=== PATIENT | female | born 1975 | race African-American/Black ===

== ENCOUNTER 2017-09-11 20:08 | Emergency (ER) | payer MEDICAID, OTHER ==
[~2017-09-11] VITALS: Ht 172.7 cm; Wt 138.0 kg
[2017-09-12] MEDS ORDERED: KETOROLAC 60MG/2ML VIAL IM ONE (03:30)
[2017-09-12 06:55] VITALS: BP 142/82
== END 2017-09-12 06:58 | disposition home or self-care (01) ==
LOC: ER 20:08
DX: S86.812A Strain of other muscle(s) and tendon(s) at lower leg level, left leg, initial encounter (principal); M17.12 Unilateral primary osteoarthritis, left knee; E11.9 Type 2 diabetes mellitus without complications; M19.90 Unspecified osteoarthritis, unspecified site; I10 Essential (primary) hypertension; Z90.49 Acquired absence of other specified parts of digestive tract; X58.XXXA Exposure to other specified factors, initial encounter; Y93.B9 Activity, other involving muscle strengthening exercises; Y92.89 Other specified places as the place of occurrence of the external cause
CPT/HCPCS: 73560; 96372; 99284; J1885; L1830; Z7610

== ENCOUNTER 2018-01-08 22:24 | Emergency (ER) | payer MEDICAID ==
[~2018-01-08] VITALS: Ht 172.7 cm; Wt 134.0 kg
[2018-01-09 05:06] LABS: BASOPHILS % 0.6 % (0.0-2.0); EOSINOPHILS % 1.8 % (0.0-5.0); HEMATOCRIT. 33.1 % (36.0-48.0); HEMOGLOBIN. 10.2 g/dL (12.0-16.0); LYMPHOCYTES % 38.9 % (20.0-50.0); MEAN CORPUSCULAR HEMOGLOBIN 22.3 pg (28.0-32.0); MEAN CORPUSCULAR VOLUME 72.1 fL (81.0-99.0); NEUTROPHILS % 53.7 % (40.0-76.0); RED BLOOD CELL COUNT 4.59 mill/uL (4.2-5.4); RED CELL DISTRIBUTION WIDTH 17.3 % (11.6-14.6)
[2018-01-09 05:11] LABS: CHLORIDE 104 mEq/L (98-107)
[2018-01-09 05:54] LABS: CLARITY URINE CLOUDY (CLEAR); COLOR URINE YELLOW (YELLOW); KETONES URINE TRACE (NEGATIVE); LEUKOCYTE ESTERASE URINE TRACE (NEGATIVE); NITRITE URINE NEGATIVE (NEGATIVE); OCCULT BLOOD URINE NEGATIVE (NEGATIVE); PH URINE 6.5 (4.5-8.0); PROTEIN URINE NEGATIVE (NEGATIVE); SPECIFIC GRAVITY URINE 1.024 (1.005-1.030); UROBILINOGEN URINE 0.2 E.U./dL (0.2-1.0)
[2018-01-09 08:18] VITALS: BP 131/82
== END 2018-01-09 08:21 | disposition home or self-care (01) ==
LOC: ER 01-09 02:21
DX: R20.2 Paresthesia of skin (principal); A59.00 Urogenital trichomoniasis, unspecified; E11.9 Type 2 diabetes mellitus without complications; I10 Essential (primary) hypertension
CPT/HCPCS: 36415; 80053; 81003; 81025; 82962; 84484; 85025; 93005; 99285

== ENCOUNTER 2018-05-15 08:44 | Emergency (ER) | payer MEDICAID ==
[~2018-05-15] VITALS: Ht 167.6 cm; Wt 132.0 kg
[2018-05-15] MEDS ORDERED: DEXAMETHASONE 10 MG/ML VIAL IM ONE (09:45)
[2018-05-15] MEDS ORDERED: KETOROLAC 60MG/2ML VIAL IM ONE (09:45)
[2018-05-15 09:59] VITALS: BP 149/86
[2018-05-15 10:11] LABS: CLARITY URINE CLOUDY (CLEAR); KETONES URINE TRACE (NEGATIVE); LEUKOCYTE ESTERASE URINE 1+ (NEGATIVE); NITRITE URINE NEGATIVE (NEGATIVE); OCCULT BLOOD URINE 3+ (NEGATIVE); PH URINE 5.5 (4.5-8.0); PROTEIN URINE 2+ (NEGATIVE); SPECIFIC GRAVITY URINE 1.025 (1.005-1.030); UROBILINOGEN URINE 0.2 E.U./dL (0.2-1.0)
[2018-05-15 10:12] LABS: COLOR URINE AMBER (YELLOW)
== END 2018-05-15 11:25 | disposition home or self-care (01) ==
LOC: ER 08:56
DX: M54.41 Lumbago with sciatica, right side (principal); N39.0 Urinary tract infection, site not specified; I10 Essential (primary) hypertension; E11.9 Type 2 diabetes mellitus without complications
CPT/HCPCS: 81003; 81025; 82962; 96372; 99284; J1100; J1885

== ENCOUNTER 2018-07-26 01:32 | Inpatient (IN) | payer MEDICAID ==
[~2018-07-26] VITALS: Ht 172.7 cm; Wt 137.0 kg
[2018-07-26 03:21] LABS: CHLORIDE 102 mEq/L (98-107)
[2018-07-26 03:23] LABS: BASOPHILS % 0.5 % (0.0-2.0); EOSINOPHILS % 2.3 % (0.0-5.0); HEMATOCRIT. 36.4 % (36.0-48.0); HEMOGLOBIN. 11.7 g/dL (12.0-16.0); LYMPHOCYTES % 37.2 % (20.0-50.0); MEAN CORPUSCULAR HEMOGLOBIN 24.3 pg (28.0-32.0); MONOCYTES % 6.1 % (2.0-8.0); NEUTROPHILS % 53.9 % (40.0-76.0); PLATELET 407 x1000/uL (130-400); RED CELL DISTRIBUTION WIDTH 15.8 % (11.6-14.6)
[2018-07-26] MEDS ORDERED: SODIUM CHLORIDE 0.9% 1,000 ML IV ONE (03:45)
[2018-07-26 04:06] LABS: PROTHROMBIN TIME 10.2 sec (9.1-11.1)
[2018-07-26] MEDS ORDERED: ACETAMINOPHEN 325MG TABLET PO ONE (04:15)
[2018-07-26 11:41] VITALS: BP 154/102
[2018-07-26 12:00] VITALS: BP 154/102
[2018-07-26] MEDS ORDERED: ATEN50TA PO (12:27)
[2018-07-26] MEDS ORDERED: CHOL200074 PO (12:27)
[2018-07-26] MEDS ORDERED: BENA20TA10 PO (12:27)
[2018-07-26] MEDS ORDERED: AMLO10TA80 PO (12:27)
[2018-07-26] MEDS ORDERED: ATOR20TA65 PO (12:27)
[2018-07-26] MEDS ORDERED: METF-415 PO (12:27)
[2018-07-26] MEDS ORDERED: IPRATROPIUM/ALBUTEROL 0.5-3(2.5)MG/3ML NEB HHN PRN (12:45)
[2018-07-26] MEDS ORDERED: ONDANSETRON HCL 4MG/2ML INJ IV PRN (12:45)
[2018-07-26] MEDS ORDERED: ACETAMINOPHEN 325MG TABLET PO PRN (12:45)
[2018-07-26] MEDS ORDERED: CLONIDINE 0.1MG TABLET PO PRN (12:45)
[2018-07-26] MEDS ORDERED: DEXTROSE 50% WATER 50ML SYRINGE IV PRN (12:45)
[2018-07-26] MEDS: GUAIFENESIN-DM 200MG-20MG/10ML UDC PO PRN ×2 (14:09→21:33)
[2018-07-26] MEDS: INSULIN LISPRO 100 UNITS/ML SUBCUT SCH ×3 (14:09→21:31)
[2018-07-26] MEDS: BLOOD SUGAR DIAGNOSTIC STRIP TEST SCH ×3 (14:09→21:30)
[2018-07-26 16:36] VITALS: BP 126/55
[2018-07-26] MEDS: KETOROLAC 30MG/ML VIAL IV PRN (17:25)
[2018-07-26 20:00] VITALS: BP 123/71
[2018-07-26 21:02] LABS: CLARITY URINE CLEAR (CLEAR); COLOR URINE YELLOW (YELLOW); KETONES URINE NEGATIVE (NEGATIVE); LEUKOCYTE ESTERASE URINE NEGATIVE (NEGATIVE); NITRITE URINE NEGATIVE (NEGATIVE); OCCULT BLOOD URINE NEGATIVE (NEGATIVE); PH URINE 5.5 (4.5-8.0); PROTEIN URINE NEGATIVE (NEGATIVE); SPECIFIC GRAVITY URINE 1.021 (1.005-1.030); UROBILINOGEN URINE 0.2 E.U./dL (0.2-1.0)
[2018-07-26 21:22] LABS: *AMPHETAMINES SCREEN URINE NEGATIVE (NEGATIVE); *BARBITURATES SCREEN URINE NEGATIVE (NEGATIVE); *BENZODIAZEPINES SCREEN URINE NEGATIVE (NEGATIVE); *COCAINE SCREEN URINE NEGATIVE (NEGATIVE); CANNABINOID URINE SCREEN NEGATIVE (NEGATIVE); METHADONE URINE SCREEN NEGATIVE (NEGATIVE); OPIATES URINE SCREEN NEGATIVE (NEGATIVE); PHENCYCLIDINE URINE SCREEN NEGATIVE (NEGATIVE)
[2018-07-26] MEDS: INSULIN GLARGINE UD 100 UNITS/ML SYR SUBCUT SCH (22:41)
[2018-07-27] VITALS: BP 120/78
[2018-07-27 04:00] VITALS: BP 116/71
[2018-07-27] MEDS: GUAIFENESIN-DM 200MG-20MG/10ML UDC PO PRN (04:09)
[2018-07-27] MEDS: KETOROLAC 30MG/ML VIAL IV PRN (04:10)
[2018-07-27] MEDS: BLOOD SUGAR DIAGNOSTIC STRIP TEST SCH ×2 (07:19→12:58)
[2018-07-27 07:47] LABS: BASOPHILS % 0.6 % (0.0-2.0); EOSINOPHILS % 3.7 % (0.0-5.0); HEMATOCRIT. 33.1 % (36.0-48.0); HEMOGLOBIN. 10.6 g/dL (12.0-16.0); LYMPHOCYTES % 40.8 % (20.0-50.0); MEAN CORPUSCULAR VOLUME 74.9 fL (81.0-99.0); MEAN PLATELET VOLUME 8.4 fl (7.4-10.4); MONOCYTES % 5.4 % (2.0-8.0); NEUTROPHILS % 49.5 % (40.0-76.0); PLATELET 325 x1000/uL (130-400); RED BLOOD CELL COUNT 4.42 mill/uL (4.2-5.4); RED CELL DISTRIBUTION WIDTH 15.5 % (11.6-14.6)
[2018-07-27] MEDS: INSULIN LISPRO 100 UNITS/ML SUBCUT SCH ×3 (07:50→13:07)
[2018-07-27 08:00] VITALS: BP 112/73
[2018-07-27 08:03] LABS: CHLORIDE 104 mEq/L (98-107)
[2018-07-27] MEDS: INSULIN GLARGINE UD 100 UNITS/ML SYR SUBCUT SCH (10:16)
[2018-07-27 12:00] VITALS: BP 144/98
[2018-07-27 16:00] VITALS: BP 136/98
[2018-07-27 17:24] VITALS: BP 136/98
== END 2018-07-27 17:47 | disposition home or self-care (01) | DRG 203 ==
LOC: ER 01:32 → 6WST 05:34 → ENRESERV 09:23
PROVIDERS: ADMIT Internal Medicine; ATTEND Internal Medicine
DX: M94.0 Chondrocostal junction syndrome [Tietze] (principal); E66.01 Morbid (severe) obesity due to excess calories; J06.9 Acute upper respiratory infection, unspecified; E11.9 Type 2 diabetes mellitus without complications; I10 Essential (primary) hypertension; J45.909 Unspecified asthma, uncomplicated; Z90.49 Acquired absence of other specified parts of digestive tract; Z98.891 History of uterine scar from previous surgery; Z68.42 Body mass index [BMI] 45.0-49.9, adult
CPT/HCPCS: 36415; 71045; 78582; 80048; 80061; 80305; 82962; 83036; 83880; 84443; 84484; 85379; 87804; 93005; 93306; 93970; 96360; 99285; A9558; C1893; J1815; J1885; J7030

== ENCOUNTER 2019-01-04 22:21 | Emergency (ER) | payer MEDICAID ==
[~2019-01-04] VITALS: Ht 172.7 cm; Wt 128.0 kg
[~2019-01-04 22:21] MED LIST: AMLO10TA80 PO; ATEN50TA PO; ATOR20TA65 PO; BENA20TA10 PO; CHOL200074 PO; METF-415 PO
[2019-01-04] MEDS ORDERED: ASPIRIN 81MG TABLET PO ONE (23:30)
[2019-01-04] MEDS ORDERED: NITROGLYCERIN 0.4MG TABLET SL SL PRN (23:30)
[2019-01-05 00:23] LABS: BASOPHILS % 0.7 % (0.0-2.0); HEMATOCRIT. 34.3 % (36.0-48.0); HEMOGLOBIN. 10.9 g/dL (12.0-16.0); LYMPHOCYTES % 40.6 % (20.0-50.0); MEAN CORPUSCULAR HEMOGLOBIN 23.7 pg (28.0-32.0); MEAN CORPUSCULAR VOLUME 74.2 fL (81.0-99.0); MEAN PLATELET VOLUME 8.6 fl (7.4-10.4); MONOCYTES % 5.7 % (2.0-8.0); PLATELET 327 x1000/uL (130-400); RED BLOOD CELL COUNT 4.62 mill/uL (4.2-5.4); RED CELL DISTRIBUTION WIDTH 16.6 % (11.6-14.6)
[2019-01-05 00:24] LABS: CHLORIDE 106 mEq/L (98-107)
[2019-01-05 05:01] VITALS: BP 122/74
== END 2019-01-05 05:02 | disposition home or self-care (01) ==
LOC: ER 22:21
DX: R07.89 Other chest pain (principal); E11.9 Type 2 diabetes mellitus without complications; I10 Essential (primary) hypertension; Z98.890 Other specified postprocedural states; Z79.899 Other long term (current) drug therapy
CPT/HCPCS: 36415; 71045; 80053; 81025; 82962; 83880; 84484; 85025; 93005; 99284; Z7610

== ENCOUNTER 2019-07-21 00:58 | Emergency (ER) | payer MEDICAID ==
[~2019-07-21] VITALS: Ht 172.7 cm; Wt 127.0 kg
[2019-07-21] MEDS ORDERED: VISCOUS LIDOCAINE 2% 15 ML UDC PO ONE (04:00)
[2019-07-21] MEDS ORDERED: MAGNESIUM/ALUMINUM HYDROXIDE/SIMETHICONE 30ML UDC PO ONE (04:00)
[2019-07-21 04:28] LABS: BASOPHILS % 0.7 % (0.0-2.0); EOSINOPHILS % 1.6 % (0.0-5.0); HEMATOCRIT. 31.9 % (36.0-48.0); HEMOGLOBIN. 10.2 g/dL (12.0-16.0); LYMPHOCYTES % 38.8 % (20.0-50.0); MEAN CORPUSCULAR HEMOGLOBIN 23.1 pg (28.0-32.0); MEAN CORPUSCULAR VOLUME 72.7 fL (81.0-99.0); MEAN PLATELET VOLUME 8.4 fl (7.4-10.4); MONOCYTES % 5.7 % (2.0-8.0); NEUTROPHILS % 53.2 % (40.0-76.0); PLATELET 349 x1000/uL (130-400); RED BLOOD CELL COUNT 4.39 mill/uL (4.2-5.4); RED CELL DISTRIBUTION WIDTH 17.6 % (11.6-14.6)
[2019-07-21 04:32] LABS: CHLORIDE 107 mEq/L (98-107)
[2019-07-21 04:37] LABS: HCG SCREEN NEGATIVE
[2019-07-21 06:55] VITALS: BP 146/84
== END 2019-07-21 07:10 | disposition home or self-care (01) ==
LOC: ER 01:37
DX: R00.2 Palpitations (principal); D50.9 Iron deficiency anemia, unspecified; R06.02 Shortness of breath; E11.9 Type 2 diabetes mellitus without complications; I10 Essential (primary) hypertension; Z98.890 Other specified postprocedural states; Z90.49 Acquired absence of other specified parts of digestive tract; Z79.899 Other long term (current) drug therapy
CPT/HCPCS: 36415; 71045; 80053; 83880; 84484; 84703; 85025; 93005; 99284

== ENCOUNTER 2021-12-04 15:06 | Emergency (ER) | payer MEDICAID ==
[~2021-12-04] VITALS: Ht 172.7 cm; Wt 127.0 kg
[~2021-12-04 15:06] MED LIST changes: -ATEN50TA PO; +DEXA6TAB6 MT; +GABA-290 PO; +OMEP20TA2 PO
[2021-12-04] MEDS ORDERED: LIDOCAINE 5% PATCH TOP SCH (16:45)
[2021-12-04] MEDS ORDERED: KETOROLAC 30MG/ML VIAL IM ONE (16:45)
[2021-12-04 17:03] VITALS: BP 194/110
[2021-12-04] MEDS ORDERED: LIDO700A30 TP (19:31)
== END 2021-12-04 19:37 | disposition home or self-care (01) ==
LOC: ER 15:06
DX: M54.41 Lumbago with sciatica, right side (principal); E11.9 Type 2 diabetes mellitus without complications; I10 Essential (primary) hypertension; Z90.49 Acquired absence of other specified parts of digestive tract; Z98.890 Other specified postprocedural states; Z79.899 Other long term (current) drug therapy
CPT/HCPCS: 96372; 99283; J1885

== ENCOUNTER 2022-06-20 01:42 | Emergency (ER) | payer MEDICAID ==
[~2022-06-20] VITALS: Ht 172.7 cm; Wt 132.0 kg
[~2022-06-20 01:42] MED LIST changes: +BENA-8 PO; -BENA20TA10 PO; +LIDO700A30 TP; -OMEP20TA2 PO; +OMEP20TA23 PO
[2022-06-20 08:30] VITALS: BP 158/99
[2022-06-20] MEDS ORDERED: ONDANSETRON 4MG ODT PO ONE (08:30)
[2022-06-20] MEDS ORDERED: HYDROCODONE/ACETAMINOPHEN 5/325MG TABLET PO ONE (08:30)
[2022-06-20] MEDS ORDERED: IBUP-2029 MT (09:21)
== END 2022-06-20 09:53 | disposition home or self-care (01) ==
LOC: ER 01:51
DX: S96.811A Strain of other specified muscles and tendons at ankle and foot level, right foot, initial encounter (principal); X58.XXXA Exposure to other specified factors, initial encounter; Y93.89 Activity, other specified; Y92.89 Other specified places as the place of occurrence of the external cause; Y99.8 Other external cause status; E11.9 Type 2 diabetes mellitus without complications; I10 Essential (primary) hypertension; Z90.49 Acquired absence of other specified parts of digestive tract; Z98.890 Other specified postprocedural states; Z79.899 Other long term (current) drug therapy
CPT/HCPCS: 73610; 73630; 99284; Q0162

== ENCOUNTER 2022-11-17 21:37 | Emergency (ER) | payer MEDICAID ==
[~2022-11-17] VITALS: Ht 172.7 cm; Wt 129.0 kg
[~2022-11-17 21:37] MED LIST changes: +IBUP-2029 MT
[2022-11-17 23:45] LABS: BASOPHILS % 0.6 % (0.0-2.0); EOSINOPHILS % 1.2 % (0.0-5.0); HEMATOCRIT. 35.1 % (36.0-48.0); HEMOGLOBIN. 11.5 g/dL (12.0-16.0); LYMPHOCYTES % 25.5 % (20.0-50.0); MEAN CORPUSCULAR HEMOGLOBIN 25.3 pg (28.0-32.0); MEAN CORPUSCULAR VOLUME 77.7 fL (81.0-99.0); MEAN PLATELET VOLUME 8.6 fl (7.4-10.4); MONOCYTES % 6.3 % (2.0-8.0); NEUTROPHILS % 66.4 % (40.0-76.0); PLATELET 412 x1000/uL (130-400); RED BLOOD CELL COUNT 4.52 mill/uL (4.2-5.4); RED CELL DISTRIBUTION WIDTH 16.6 % (11.6-14.6)
[2022-11-17 23:54] LABS: CHLORIDE 107 mEq/L (98-107)
[2022-11-18 01:46] VITALS: BP 141/94
== END 2022-11-18 02:02 | disposition home or self-care (01) ==
LOC: ER 21:53
DX: I10 Essential (primary) hypertension (principal); E11.9 Type 2 diabetes mellitus without complications
CPT/HCPCS: 36415; 71045; 80053; 83880; 84484; 85025; 93005; 99285

== ENCOUNTER 2023-11-17 00:56 | Emergency (ER) | payer MEDICAID ==
[~2023-11-17] VITALS: Ht 170.2 cm; Wt 96.0 kg
[2023-11-17 00:59] VITALS: TEMP 98.3; O2SAT 98
[2023-11-17 01:52] LABS: BASOPHILS % 0.5 % (0.0-2.0); DIFFERENTIAL COMMENT 0; EOSINOPHILS % 1.1 % (0.0-5.0); HEMATOCRIT. 32.4 % (36.0-48.0); HEMOGLOBIN. 10.5 g/dL (12.0-16.0); LYMPHOCYTES % 30.5 % (20.0-50.0); MEAN CORPUSCULAR HEMOGLOBIN 25.1 pg (28.0-32.0); MEAN CORPUSCULAR HGB CONC 32.3 g/dL (31.0-37.0); MEAN CORPUSCULAR VOLUME 77.6 fL (81.0-99.0); MEAN PLATELET VOLUME 7.7 fl (7.4-10.4); MONOCYTES % 4.8 % (2.0-8.0); NEUTROPHILS % 63.1 % (40.0-76.0); PLATELET 411 x1000/uL (130-400); RED BLOOD CELL COUNT 4.18 mill/uL (4.2-5.4); RED CELL DISTRIBUTION WIDTH 16.2 % (11.6-14.6); WHITE BLOOD COUNT 7.5 x1000/uL (4.5-11.0)
[2023-11-17 01:58] LABS: CHLORIDE 107 mEq/L (98-107); POTASSIUM 3.4 mEq/L (3.5-5.1); SODIUM 138 mEq/L (136-145)
[2023-11-17 01:59] LABS: CALCIUM 9.3 mg/dL (8.7-10.4); CARBON DIOXIDE 24 mEq/L (21-32)
[2023-11-17 02:04] LABS: CREATININE 0.9 mg/dL (0.6-1.0); GLUCOSE 255 mg/dL (70-105); UREA NITROGEN BLOOD 10 mg/dL (9-23)
[2023-11-17 02:06] LABS: ALANINE AMINOTRANSFERASE 15 IU/L (10-49); ALBUMIN 4.3 g/dL (3.2-4.8); ASPARTATE AMINOTRANSFERASE 11 IU/L (<34)
[2023-11-17 02:07] LABS: BILIRUBIN TOTAL 0.3 mg/dL (0.1-1.0); ETHANOL BLOOD < 10 mg/dL (<10); PROTEIN TOTAL 8.1 g/dL (6.0-8.3); TROPONIN I HIGH SENSITIVITY < 4 ng/L (3.0-34)
[2023-11-17] MEDS: ASPIRIN 325MG EC TABLET PO ONE (02:11)
[2023-11-17] MEDS: NITROGLYCERIN 0.4MG TABLET SL SL ONE (02:11)
[2023-11-17 02:14] LABS: HCG SCREEN NEGATIVE
[2023-11-17 02:24] LABS: PARTIAL THROMBOPLASTIN TIME 27.1 sec (23.4-31.0); PROTHROMBIN TIME 11.2 sec (9.6-11.0)
[2023-11-17] MEDS: HYDRALAZINE 20MG/ML VIAL IV NR (03:39)
[2023-11-17 04:23] LABS: TROPONIN I HIGH SENSITIVITY < 4 ng/L (3.0-34)
[2023-11-17] MEDS: ACETAMINOPHEN 325MG TABLET PO ONE (04:39)
[2023-11-17 05:12] VITALS: BP 151/80; PULSE 76; RESP 17
== END 2023-11-17 05:12 | disposition home or self-care (01) ==
LOC: ER 00:56
DX: R07.89 Other chest pain (principal); F43.0 Acute stress reaction; I10 Essential (primary) hypertension; E11.9 Type 2 diabetes mellitus without complications; Z79.899 Other long term (current) drug therapy
CPT/HCPCS: 80053; 80320; 84703; 83880; 85025; 85610; 85730; 84484; 36415; 71045; 93005; 96374; 99285; J0360; G0480

== ENCOUNTER 2024-03-12 23:30 | Emergency (ER) | payer MEDICAID ==
[~2024-03-12] VITALS: Ht 167.6 cm; Wt 95.0 kg
[2024-03-12 23:46] VITALS: O2SAT 98
[2024-03-13 01:19] LABS: BASOPHILS % 0.6 % (0.0-2.0); DIFFERENTIAL COMMENT 0; EOSINOPHILS % 1.9 % (0.0-5.0); HEMOGLOBIN. 10.6 g/dL (12.0-16.0); LYMPHOCYTES % 29.3 % (20.0-50.0); MEAN CORPUSCULAR HEMOGLOBIN 24.7 pg (28.0-32.0); MEAN PLATELET VOLUME 8.4 fl (7.4-10.4); MONOCYTES % 4.5 % (2.0-8.0); NEUTROPHILS % 63.7 % (40.0-76.0); PLATELET 434 x1000/uL (130-400); RED BLOOD CELL COUNT 4.29 mill/uL (4.2-5.4); RED CELL DISTRIBUTION WIDTH 15.6 % (11.6-14.6); WHITE BLOOD COUNT 10.3 x1000/uL (4.5-11.0)
[2024-03-13 01:28] LABS: CHLORIDE 103 mEq/L (98-107); POTASSIUM 3.3 mEq/L (3.5-5.1); SODIUM 135 mEq/L (136-145)
[2024-03-13 01:29] LABS: CALCIUM 9.9 mg/dL (8.7-10.4); CARBON DIOXIDE 24 mEq/L (21-32)
[2024-03-13 01:34] LABS: GLUCOSE 320 mg/dL (70-105); UREA NITROGEN BLOOD 6 mg/dL (9-23)
[2024-03-13 01:47] LABS: HCG SCREEN NEGATIVE
[2024-03-13 01:53] LABS: ETHANOL BLOOD < 10 mg/dL (<10); TROPONIN I HIGH SENSITIVITY < 4 ng/L (3.0-34)
[2024-03-13 03:25] LABS: *AMPHETAMINES SCREEN URINE NEGATIVE (NEGATIVE); *BARBITURATES SCREEN URINE NEGATIVE (NEGATIVE); *BENZODIAZEPINES SCREEN URINE NEGATIVE (NEGATIVE); *COCAINE SCREEN URINE NEGATIVE (NEGATIVE); METHADONE URINE SCREEN NEGATIVE (NEGATIVE); OPIATES URINE SCREEN NEGATIVE (NEGATIVE)
[2024-03-13 03:26] LABS: CANNABINOID URINE SCREEN PRESUMPTIVE POSITIVE (NEGATIVE); ECSTASY MDMA SCREEN URINE NEGATIVE (NEGATIVE); PHENCYCLIDINE URINE SCREEN NEGATIVE (NEGATIVE)
[2024-03-13 04:04] LABS: TROPONIN I HIGH SENSITIVITY < 4 ng/L (3.0-34)
[2024-03-13] MEDS: POTASSIUM CHLORIDE 20MEQ/PACKET PO NR (05:01)
[2024-03-13 05:05] VITALS: BP 144/97; PULSE 81; RESP 16; TEMP 36.89184; O2SAT 100
== END 2024-03-13 05:05 | disposition home or self-care (01) ==
LOC: ER 23:30
DX: R07.89 Other chest pain (principal); E11.9 Type 2 diabetes mellitus without complications; I10 Essential (primary) hypertension; Z79.899 Other long term (current) drug therapy
CPT/HCPCS: 36415; 71045; 80048; 80305; 80320; 81025; 83880; 84484; 84703; 85025; 85379; 93005; 99285; G0480